=== PATIENT | female | born 1985 | race Caucasian/White ===

== ENCOUNTER 2016-10-13 09:02 | Emergency (ER) | payer BC ==
[2016-10-13 09:23] VITALS: BP 111/72
--- NOTE | 2016-10-13 09:32 | UC ---
Ear Complaint HPI - HPI Summary HPI Summary: right ear pain x 1 day, + cold sx x 7 days no fever, no chills, no cough - History of Current Complaint Chief Complaint: UCRespiratory Stated Complaint: RIGHT EAR PAIN Time Seen by Provider: 10/13/16 09:26 Hx Obtained From: Patient Hx Last Menstrual Period: End aug. ?: No Onset/Duration: Sudden Onset, Lasting Days - 1, Still Present Severity Initially: Severe Severity Currently: Severe Aggravating Factors: Cold Alleviating Factors: Nothing Associated Signs/Symptoms: Positive: URI Symptoms. Negative: Discharge, Hearing Loss, Foreign Body Sensation, Trauma to Ear, Swelling @ - Allergies/Home Medications Allergies/Adverse Reactions: Allergies Allergy/AdvReac Type Severity Reaction Status Date / Time No Known Allergies Allergy Verified 10/13/16 09:23 PMH/Surg Hx/FS Hx/Imm Hx Endocrine History Of: Denies: Diabetes Cardiovascular History Of: Reports: Hypertension Denies: Cardiac Disorders Respiratory History Of: Reports: Asthma - Surgical History Surgical History: Yes Surgery Procedure, Year, and Place: 1998 tubes in ears - Family History Known Family History: Positive: Cardiac Disease, Hypertension, Diabetes - Social History Alcohol Use: None Substance Use Type: None Smoking Status (MU): Never Smoked Tobacco Review of Systems Constitutional: Negative Skin: Negative Eyes: Negative ENT: Ear Ache, Nasal Discharge Respiratory: Negative Cardiovascular: Negative Gastrointestinal: Negative All Other Systems Reviewed And Are Negative: Yes Physical Exam Triage Information Reviewed: Yes Appearance: Well-Appearing, No Pain Distress, Well-Nourished Vital Signs: Initial Vital Signs Temp 98.7 F 10/13/16 09:15 Pulse 77 10/13/16 09:15 Resp 18 10/13/16 09:15 BP 111/72 10/13/16 09:15 Pulse Ox 98 10/13/16 09:15 Vital Signs Reviewed: Yes Eyes: Positive: Conjunctiva Clear ENT: Positive: Normal ENT inspection, Hearing grossly normal, Pharynx normal, Nasal congestion, TM bulging - right, TM dull - right, TM red - right. Negative : Pharyngeal erythema, Nasal drainage Neck: Positive: Supple, Nontender, No Lymphadenopathy Respiratory: Positive: Chest non-tender, Lungs clear, Normal breath sounds Cardiovascular: Positive: RRR, No Murmur, Pulses Normal Ear Complaint Course/Dx - Differential Dx/Diagnosis Provider Diagnoses: otitis media Discharge - Discharge Plan Condition: Stable Disposition: HOME Prescriptions: Amoxicillin (*) 875 mg PO BID #20 tab Patient Education Materials: Otitis Media (ED) Referrals: Julia Harding [Primary Care Provider] - 7 Days
== END 2016-10-13 09:39 | disposition home or self-care (01) ==
LOC: UCCORT 09:02
DX: H66.91 Otitis media, unspecified, right ear (principal); J00 Acute nasopharyngitis [common cold]
CPT/HCPCS: 99212; G0463

== ENCOUNTER 2017-02-10 12:04 | Emergency (ER) | payer BC ==
[2017-02-10 12:36] VITALS: BP 141/73
--- NOTE | 2017-02-10 13:00 | UC ---
Abdominal Pain Female HPI - HPI Summary HPI Summary: The patient comes in today for: 1. Abdominal pain: Onset: 2 days ago. Palliative/provocative: Nothing makes it better or worse. Quality: Aching, cramping. Region: Lower right and left abdominal pain. Severity: 1/10 Time: Comes and goes. Associated symptoms: Dysuria: None. Fever: None. Previous disease: None. Last BM: She will have a BM with the pain. She will have diarrhea. She has one 7-8 times. Diarrhea on Saturday was "not so much." She had BMs yesterday more than today. Nausea: None and no vomiting. Other's ill: None. A0 female with LMP of 517. No unusual vaginal discharge or bleeding. Usually, her crampy abdominal pain will come on and last a few minutes resulting in a bowel movement. Then she will be OK. * - History of Current Complaint Chief Complaint: UCAbdominalPain Stated Complaint: ABD PAIN Time Seen by Provider: 02/10/17 12:53 Hx Obtained From: Patient Hx Last Menstrual Period: 02/07/17 ?: No Allergies/Adverse Reactions: Allergies Allergy/AdvReac Type Severity Reaction Status Date / Time No Known Allergies Allergy Verified 02/10/17 12:36 Home Medications: Home Medications Omeprazole CAP* [Prilosec CAP* 20 MG] 1 tab PO DAILY 02/10/17 [History Confirmed 02/10/17] PMH/Surg Hx/FS Hx/Imm Hx Previously Healthy: No Endocrine History Of: Denies: Diabetes, Thyroid Disease, Hyperthyroidism, Hypothyroidism, Dyslipidemia Cardiovascular History Of: Reports: Hypertension - She was on propranolol for a while. She has been taken off recently. Denies: Cardiac Disorders, Pacemaker/ICD, Myocardial Infarction, Congestive Heart Failure, Atrial Fibrillation, Deep Vein Thrombosis, Bleeding Disorders Respiratory History Of: Reports: Asthma - "a few years ago." Denies: COPD, Bronchitis, Pneumonia, Pulmonary Embolism GI/ History Of: Reports: Gastroesophageal Reflux Denies: Ulcer, Gastrointestinal Bleed, Gall Bladder Disease, Kidney Stones, Diverticulitis, Renal Disease, Urosepsis Neurological History Of: Denies: TIA, CVA, Dementia, Seizures, Migraine Psychological History Of: Reports: Anxiety, Depression Denies: Bipolar Disorder, Schizophrenia, Post Traumatic Stress Disorder Cancer History Of: Denies: Lung Cancer, Colorectal Cancer, Breast Cancer, Prostate Cancer, Cervical Cancer Other History Of: Negative For: HIV, Hepatitis B, Hepatitis C, Anticoagulant Therapy - Surgical History Surgical History: Yes Surgery Procedure, Year, and Place: 1998 tubes in ears - Family History Known Family History: Positive: Cardiac Disease, Hypertension, Diabetes - Social History Occupation: Employed Full-time Alcohol Use: None Substance Use Type: None Smoking Status (MU): Never Smoked Tobacco Review of Systems Constitutional: Negative Skin: Negative Eyes: Negative ENT: Negative Respiratory: Negative Cardiovascular: Negative Gastrointestinal: Abdominal Pain, Diarrhea Genitourinary: Negative All Other Systems Reviewed And Are Negative: Yes Physical Exam Triage Information Reviewed: Yes Appearance: Well-Appearing, No Pain Distress, Ill-Appearing Vital Signs: Initial Vital Signs Temp 98.9 F 02/10/17 12:29 Pulse 88 02/10/17 12:29 Resp 16 02/10/17 12:29 BP 141/73 02/10/17 12:29 Pulse Ox 98 02/10/17 12:29 Vital Signs Reviewed: Yes Eyes: Positive: Conjunctiva Clear. Negative: Discharge ENT: Positive: Hearing grossly normal. Negative: Pharyngeal erythema, Nasal congestion, Nasal drainage, TM bulging, TM dull, TM red, Tonsillar swelling, Tonsillar exudate Dental: Negative: Gross Decay/Caries @, Dental Fracture @ Neck: Positive: Supple, Nontender, No Lymphadenopathy. Negative: Nuchal Rigidity Respiratory: Positive: Chest non-tender, Lungs clear, No respiratory distress, No accessory muscle use. Negative: Rhonchi, Wheezing Cardiovascular: Positive: RRR, No Murmur Abdomen Description: Positive: No Organomegaly, Soft. Negative: Nontender - She has tenderness with deep palpation of the right and left LQ. There is no rebound or percussion tenderness. No masses., Distended, Guarding Musculoskeletal: Positive: Strength Intact, ROM Intact, No Edema Neurological: Positive: Alert, Muscle Tone Normal Psychological: Positive: Normal Response To Family, Age Appropriate Behavior, Consolable Skin: Negative: rashes, breakdown Abd Pain Female Course/Dx - Course Course Of Treatment: Patient was told that I did not know for sure what was causing her abdominal pain. My recommendation was to go to the ER for further evaluation. HOwever, she did not want to do that. . She wanted to try a anti- spasmotic medication and if she did not get better, she was going to go to the ER. - Differential Dx/Diagnosis Differential Diagnosis: Constipation, Diverticulitis Provider Diagnoses: ABdominal pain, episodic,. Gastroenteritis Discharge - Discharge Plan Condition: Stable Disposition: HOME Patient Education Materials: Gastroenteritis (ED) Referrals: Julia Harding [Primary Care Provider] - 3 Days (Please see your primary care provider early next week to see how well you are doing. If you get worse, please be seen sooner.)
== END 2017-02-10 13:34 | disposition home or self-care (01) ==
LOC: UCCORT 12:04
DX: K52.9 Noninfective gastroenteritis and colitis, unspecified (principal); R10.31 Right lower quadrant pain; R10.32 Left lower quadrant pain; I10 Essential (primary) hypertension; J45.909 Unspecified asthma, uncomplicated; K21.9 Gastro-esophageal reflux disease without esophagitis; F41.8 Other specified anxiety disorders
CPT/HCPCS: 99212; G0463

== ENCOUNTER 2017-05-23 20:14 | Emergency (ER) | payer BC ==
[2017-05-23 20:26] VITALS: BP 124/77
--- NOTE | 2017-05-23 20:36 | UC ---
Skin Complaint HPI - HPI Summary HPI Summary: 31 year old female with rash. states she woke up this morning and noticed a rash on left forearm, then took a shower and noticed the rash had spread everywhere. Also says she has had a sore throat x 1 week and is unsure if it is related. SON WITH STREP 2 WEEKS AGO AND WITH STREP LAST WEEK AND HE IS STILL ON ANTIBIOTICS. [ End ] - History of Current Complaint Chief Complaint: UCSkin Time Seen by Provider: 05/23/17 20:28 Stated Complaint: RASH Hx Obtained From: Patient Hx Last Menstrual Period: 05/23/17 Timing: Constant Location: Diffuse Character: Pruritus Aggravating: Nothing Alleviating: Nothing - Allergy/Home Medications Allergies/Adverse Reactions: Allergies Allergy/AdvReac Type Severity Reaction Status Date / Time No Known Allergies Allergy Verified 05/23/17 20:25 Review of Systems Constitutional: Negative Skin: Rash Eyes: Negative ENT: Negative Respiratory: Negative Cardiovascular: Negative Gastrointestinal: Negative Genitourinary: Negative Motor: Negative Neurovascular: Negative Musculoskeletal: Negative Neurological: Negative Psychological: Negative All Other Systems Reviewed And Are Negative: Yes PMH/Surg Hx/FS Hx/Imm Hx Previously Healthy: Yes Other History Of: Negative For: HIV, Hepatitis B, Hepatitis C, Anticoagulant Therapy - Surgical History Surgical History: Yes Surgery Procedure, Year, and Place: 1998 tubes in ears - Family History Known Family History: Positive: Cardiac Disease, Hypertension, Diabetes - Social History Occupation: Employed Full-time Lives: With Family Alcohol Use: None Substance Use Type: None Smoking Status (MU): Never Smoked Tobacco Physical Exam Triage Information Reviewed: Yes Appearance: Well-Appearing, No Pain Distress, Well-Nourished Vital Signs: Initial Vital Signs Temp 98.8 F 05/23/17 20:21 Pulse 90 05/23/17 20:21 Resp 16 05/23/17 20:21 BP 124/77 05/23/17 20:21 Pulse Ox 100 05/23/17 20:21 Eye Exam: Normal ENT Exam: Normal Dental Exam: Normal Neck exam: Normal Neck: Positive: 1 Respiratory Exam: Normal Cardiovascular Exam: Normal Musculoskeletal Exam: Normal Neurological Exam: Normal Psychological Exam: Normal Skin Exam: Normal Skin: Positive: rashes - macular scattered erythematous rash on the bilateral forearms and chest Course/Dx - Course Course Of Treatment: likely strep rash from untreated strep exposure last few weeks and still with sore throat at this time. treat a thist time - Differential Diagnoses - Skin Complaint Differential Diagnoses: Cellulitis, Contact Dermatitis, Drug Rash, Poison [place], Scabies, Urticaria, Viral Exanthem - Diagnoses Provider Diagnoses: Strep rash/ scarlet fever Discharge - Discharge Plan Condition: Good Disposition: HOME Prescriptions: Amoxicillin PO (*) [Amoxicillin 500 MG CAP*] 500 mg PO Q12H #20 cap Patient Education Materials: Scarlet Fever (ED) Referrals: Leigh Andre MD [Primary Care Provider] - 4 Days
== END 2017-05-23 20:48 | disposition home or self-care (01) ==
LOC: UCCORT 20:14
DX: A38.9 Scarlet fever, uncomplicated (principal); J02.0 Streptococcal pharyngitis
CPT/HCPCS: 99212; G0463

== ENCOUNTER 2017-05-26 18:50 | Emergency (ER) | payer BC ==
[2017-05-26 19:23] VITALS: BP 153/100
--- NOTE | 2017-05-26 19:28 | UC ---
Upper Extremity HPI - HPI Summary HPI Summary: 31 YEAR OLD FEMALE PRESENTS WITH COMPLAINS OF SWOLLEN HAND AFTER TAKING - History of Current Complaint Chief Complaint: UCGeneralIllness Stated Complaint: JOINT SWELLING/PAIN Time Seen by Provider: 05/26/17 19:24 Hx Last Menstrual Period: 05/22/17 - Allergies/Home Medications Allergies/Adverse Reactions: Allergies Allergy/AdvReac Type Severity Reaction Status Date / Time No Known Allergies Allergy Verified 05/26/17 19:17 Home Medications: Home Medications Ibuprofen TAB* [Motrin TAB* 800 MG] 800 mg PO Q8H PRN 05/26/17 [History Confirmed 05/26/17] PMH/Surg Hx/FS Hx/Imm Hx Previously Healthy: Yes Other History Of: Negative For: HIV, Hepatitis B, Hepatitis C, Anticoagulant Therapy - Surgical History Surgical History: Yes Surgery Procedure, Year, and Place: 1998 tubes in ears - Family History Known Family History: Positive: Cardiac Disease, Hypertension, Diabetes - Social History Alcohol Use: None Substance Use Type: None Smoking Status (MU): Never Smoked Tobacco Review of Systems Constitutional: Negative Skin: Negative Eyes: Negative ENT: Negative Respiratory: Negative Cardiovascular: Negative Gastrointestinal: Negative Genitourinary: Negative Motor: Negative Neurovascular: Negative Musculoskeletal: Other: - SWOLLEN HANDS Neurological: Negative Psychological: Negative All Other Systems Reviewed And Are Negative: Yes Physical Exam Triage Information Reviewed: Yes Vital Signs: Initial Vital Signs Temp 37.6 C 05/26/17 19:18 Pulse 83 05/26/17 19:18 Resp 16 05/26/17 19:18 BP 153/100 05/26/17 19:18 Pulse Ox 100 05/26/17 19:18 Eye Exam: Normal ENT Exam: Normal Dental Exam: Normal Neck exam: Normal Neck: Positive: 1 Respiratory Exam: Normal Cardiovascular Exam: Normal Abdominal Exam: Normal Musculoskeletal: Positive: Other: - SWOLLEN HANDS Neurological Exam: Normal Psychological Exam: Normal Skin Exam: Normal Upper Extremity Course/Dx - Differential Dx/Diagnosis Provider Diagnoses: SWOLLEN HANDS Discharge - Discharge Plan Condition: Stable Disposition: HOME Patient Education Materials: Swollen Joint (ED) Referrals: Leigh Andre MD [Primary Care Provider] -
== END 2017-05-26 20:15 | disposition home or self-care (01) ==
LOC: UCCORT 18:50
DX: R22.33 Localized swelling, mass and lump, upper limb, bilateral (principal)
CPT/HCPCS: 87651; 99211; G0463

== ENCOUNTER 2017-07-10 15:37 | Emergency (ER) | payer BC ==
[2017-07-10 16:10] VITALS: BP 132/83
--- NOTE | 2017-07-10 16:51 | UC ---
Lower Extremity/Ankle HPI - HPI Summary HPI Summary: Fall as she stepped down from the last step. She heard a pop. there is no calf pain. - History of Current Complaint Chief Complaint: UCLowerExtremity Stated Complaint: PT FELL RIGHT FOOT PAIN AND SWELLING Time Seen by Provider: 07/10/17 16:40 Hx Obtained From: Patient Hx Last Menstrual Period: 06/25/17 Onset/Duration: Sudden Onset, Lasting Hours Severity Initially: Severe Severity Currently: Severe Aggravating Factor(s): Standing, Ambulation Alleviating Factor(s): Rest, Elevation Able to Bear Weight: No - Risk Factors Gout Risk Factors: Negative - Allergies/Home Medications Allergies/Adverse Reactions: Allergies Allergy/AdvReac Type Severity Reaction Status Date / Time No Known Allergies Allergy Verified 07/10/17 16:04 Home Medications: Home Medications Escitalopram (NF) [Lexapro 20 mg (NF)] 20 mg PO DAILY 07/10/17 [History Confirmed 07/10/17] Ibuprofen TAB* [Motrin TAB* 800 MG] 800 mg PO ONCE 07/10/17 [History Confirmed 07/10/17] busPIRone TAB* [Buspar TAB *] 15 mg PO DAILY 07/10/17 [History Confirmed ] PMH/Surg Hx/FS Hx/Imm Hx Previously Healthy: No - no prior injury to that ankle. Other History Of: Negative For: HIV, Hepatitis B, Hepatitis C, Anticoagulant Therapy - Surgical History Surgical History: Yes Surgery Procedure, Year, and Place: 1998 tubes in ears - Family History Known Family History: Positive: Cardiac Disease, Hypertension, Diabetes - Social History Alcohol Use: None Substance Use Type: None Smoking Status (MU): Former Smoker Length of Time of Smoking/Using Tobacco: 10/09 PPD for less than one year When Did the Patient Quit Smoking/Using Tobacco: 2012 - Immunization History Most Recent Influenza Vaccination: Not the 2016/2017 Season Review of Systems Musculoskeletal: Arthralgia All Other Systems Reviewed And Are Negative: Yes Physical Exam Triage Information Reviewed: Yes Appearance: Pain Distress - with palpation of the ankle., Obese Vital Signs: Initial Vital Signs Temp 98.5 F 07/10/17 16:02 Pulse 74 07/10/17 16:02 Resp 16 07/10/17 16:02 BP 132/83 07/10/17 16:02 Pulse Ox 99 07/10/17 16:02 Vital Signs Reviewed: Yes Eye Exam: Normal ENT: Positive: Normal ENT inspection Neck exam: Normal Neck: Positive: Supple, Nontender, No Lymphadenopathy Respiratory: Positive: No respiratory distress, No accessory muscle use Cardiovascular: Positive: RRR, Pulses Normal Musculoskeletal: Positive: Edema @ - dorsum of the foot., Other: - tenderness medial malleolus and 5th metatarsal. No tenderness of the proximal fibula. Neurological Exam: Normal Neurological: Positive: Alert, Muscle Tone Normal, Fatigued Psychological Exam: Normal Skin Exam: Normal Skin: Positive: rashes Lower Extremity Course/Dx - Differential Dx/Diagnosis Provider Diagnoses: right ankle pain. right ankle sprain. right foot sprain Discharge - Discharge Plan Condition: Good Disposition: HOME Patient Education Materials: Ankle Sprain (ED) Referrals: Leigh Andre MD [Primary Care Provider] - Aravind Felix MD [Medical Doctor] - If Needed
--- NOTE | 2017-07-10 17:47 | RAD ---
Indication: Traumatic medial RIGHT ankle pain. Comparison: No relevant prior exams available on the [facility] PACS for comparison. Technique: AP, mortise, and lateral views RIGHT ankle. AP, lateral, and oblique views of the RIGHT foot. Report: Soft tissue swelling about the ankle through mid foot without significant focality. Negative for articular malalignment or fracture at the ankle or foot. Normal variant bipartite sesamoid at the medial head of the flexor hallucis brevis. IMPRESSION: Soft tissue swelling without evidence for fracture or malalignment at the ankle or foot.
--- NOTE | 2017-07-10 17:47 | RAD ---
Indication: Traumatic medial RIGHT ankle pain. Comparison: No relevant prior exams available on the [facility] [place] for [place]. Technique: AP, mortise, and lateral views RIGHT ankle. AP, lateral, and oblique views of the RIGHT foot. Report: Soft tissue swelling about the ankle through mid foot without significant focality. Negative for articular malalignment or fracture at the ankle or foot. Normal variant bipartite sesamoid at the medial head of the flexor hallucis brevis. IMPRESSION: Soft tissue swelling without evidence for fracture or malalignment at the ankle or foot.
== END 2017-07-10 18:34 | disposition home or self-care (01) ==
LOC: UCCORT 15:37
DX: S93.401A Sprain of unspecified ligament of right ankle, initial encounter (principal); S93.601A Unspecified sprain of right foot, initial encounter; M25.571 Pain in right ankle and joints of right foot; Z87.891 Personal history of nicotine dependence; W10.9XXA Fall (on) (from) unspecified stairs and steps, initial encounter; Y92.9 Unspecified place or not applicable
CPT/HCPCS: 99213; G0463

== ENCOUNTER 2017-10-15 12:36 | Emergency (ER) | payer BC ==
[2017-10-15 14:30] VITALS: BP 134/86
--- NOTE | 2017-10-15 14:39 | UC ---
Throat Pain/Nasal Chidi HPI - HPI Summary HPI Summary: 31 y/o female presents to the urgent care c/o sore throat with mild dry cough since yesterday. Pain is 8/10 with swallowing, mild subjective fever at home. Pt denies SOB, OLIVER, chest pain abdominal pain N/V/D - History of Current Complaint Chief Complaint: UCRespiratory Stated Complaint: SORE THROAT Time Seen by Provider: 10/15/17 14:38 Hx Obtained From: Patient Hx Last Menstrual Period: 10/03/17 ?: No Onset/Duration: Gradual Onset, Lasting Days - 1 day, Still Present Severity: Moderate Pain Intensity: 8 Pain Scale Used: 0-10 Numeric Cough: Nonproductive Associated Signs & Symptoms: Positive: Fever - subjective at home - Epiglottits Risk Factors Epiglottis Risk Factors: Negative - Allergies/Home Medications Allergies/Adverse Reactions: Allergies Allergy/AdvReac Type Severity Reaction Status Date / Time No Known Allergies Allergy Verified 10/15/17 14:30 Home Medications: Home Medications Escitalopram (NF) [Lexapro 20 mg (NF)] 20 mg PO DAILY 10/15/17 [History Confirmed 10/15/17] PMH/Surg Hx/FS Hx/Imm Hx Previously Healthy: Yes Psychological History: Anxiety Other History Of: Negative For: HIV, Hepatitis B, Hepatitis C, Anticoagulant Therapy - Surgical History Surgical History: Yes Surgery Procedure, Year, and Place: 1998 tubes in ears - Family History Known Family History: Positive: Cardiac Disease, Hypertension, Diabetes - Social History Occupation: Employed Full-time Lives: With Family Alcohol Use: Rare Substance Use Type: None Smoking Status (MU): Former Smoker Length of Time of Smoking/Using Tobacco: 10/09 PPD for less than one year When Did the Patient Quit Smoking/Using Tobacco: 2012 - Immunization History Most Recent Influenza Vaccination: Not the Season Review of Systems Constitutional: Fever Skin: Negative Eyes: Negative ENT: Sore Throat Respiratory: Cough - dry Cardiovascular: Negative Gastrointestinal: Negative Genitourinary: Negative Motor: Negative Neurovascular: Negative Musculoskeletal: Negative Neurological: Negative Psychological: Negative Is Patient Immunocompromised?: No All Other Systems Reviewed And Are Negative: Yes Physical Exam Triage Information Reviewed: Yes Vital Signs: Initial Vital Signs Temp 99.6 F 10/15/17 14:26 Pulse 93 10/15/17 14:26 Resp 18 10/15/17 14:26 BP 134/86 10/15/17 14:26 Pulse Ox 99 10/15/17 14:26 - Additional Comments VITAL SIGNS: Reviewed. GENERAL: Patient is a well developed and nourished female who is sitting comfortable in the examining table. Patient is not in any acute respiratory distress. HEAD AND FACE: No signs of trauma. No ecchymosis, hematomas or skull depressions. No sinus tenderness. EYES: PERRLA, EOMI x 2, No injected conjunctiva, no nystagmus. No photophobia. EARS: Hearing grossly intact. Ear canals and tympanic membranes are within normal limits. MOUTH: Positive pharynx with erythema, exudates, palatal petechiae. B/L tonsillar enlargement with exudate. Uvula in midline. NECK: Supple, trachea is midline, Positive anterior cervical lymphadenopathy, no JVD, no carotid bruit, no c-spine tenderness, neck with full ROM. No meningeal signs, no Kernig's or brudzinskis signs. CHEST: Symmetric, no tenderness at palpation LUNGS: Clear to auscultation bilaterally. No wheezing or crackles. CVS: Regular rate and rhythm, S1 and S2 present, no murmurs or gallops appreciated. ABDOMEN: Soft, non-tender. No signs of distention. No rebound no guarding, and no masses palpated. Bowel sounds are normal. EXTREMITIES: FROM in all major joints, no edema, no cyanosis or clubbing. NEURO: Alert and oriented x 3. No acute neurological deficits. Speech is normal and follows commands. SKIN: Dry and warm Throat Pain/Nasal Course/Dx - Course Course Of Treatment: 31 y/o female presents to the urgent care c/o sore throat with mild dry cough since yesterday. Pain is 8/10 with swallowing, mild subjective fever at home. Pt denies SOB, OLIVER, chest pain abdominal pain N/V/D. HX obtained. Pt with pharyngitis on examination. Rapid strep ordered: result: positive. Strep pharyngitis. Rx Amoxicillin PO and Ibuprofen PO for pain and swelling. PT Advised on hand washing to avoid spreading. Also advised to rest, eat well and avoid strenuous exercise. If symptoms do not improve or worsen advised to return to the urgent care or f/u with her PCP for further evaluation and treatment. PT understood and agreed - Differential Dx/Diagnosis Differential Diagnosis/HQI/PQRI: Influenza, Laryngitis, Mononucleosis, Pharyngitis, Sinusitis, Tonsillitis, URI Provider Diagnoses: 1- Strep Pharyngitis Discharge - Discharge Plan Condition: Stable Disposition: HOME Prescriptions: Amoxicillin PO (*) [Amoxicillin 875 MG (*)] 875 mg PO BID #20 tab Ibuprofen TAB* [Motrin TAB* 800 MG] 800 mg PO Q6H PRN #20 tab PRN Reason: Pain Patient Education Materials: Strep Throat (ED) Referrals: Leigh Andre MD [Primary Care Provider] - 3 Days Additional Instructions: 1- Please take the full course of the antibiotic to avoid resistance. 2-Please take ibuprofen PO q6-8hrs prn as instructed after meals to alleviate pain and swelling. Increase fluid intake, eat well, rest and avoid strenuous exercise 3-If symptoms do not improve or worsen please return to the urgent care or f/u with your PCP for further evaluation and treatment.
== END 2017-10-15 14:55 | disposition home or self-care (01) ==
LOC: UCCORT 12:36
DX: J02.0 Streptococcal pharyngitis (principal); F41.9 Anxiety disorder, unspecified; Z87.891 Personal history of nicotine dependence
CPT/HCPCS: 87651; 99212; G0463

== ENCOUNTER 2017-11-15 14:45 | Emergency (ER) | payer BC ==
[2017-11-15 17:30] VITALS: BP 145/93
--- NOTE | 2017-11-15 17:48 | UC ---
Knee Pain HPI - HPI Summary HPI Summary: 32 yo female with onset of medial knee pain 11/10 walking down stairs denies twisting or jamming injury painful to bend knee amrita at jenn[facility] no swelling - History of Current Complaint Chief Complaint: UCLowerExtremity Stated Complaint: RT KNEE INJURY Time Seen by Provider: 11/15/17 17:36 Hx Obtained From: Patient Hx Last Menstrual Period: 11/05/17 Onset/Duration: Sudden Onset, Lasting Days Severity Initially: Moderate Severity Currently: Moderate Pain Intensity: 8 - max Pain Scale Used: 0-10 Numeric Character: Sharp Aggravating Factor(s): Movement Alleviating Factor(s): Rest Able to Bear Weight: Yes - Allergies/Home Medications Allergies/Adverse Reactions: Allergies Allergy/AdvReac Type Severity Reaction Status Date / Time No Known Allergies Allergy Verified 11/15/17 17:30 PMH/Surg Hx/FS Hx/Imm Hx Previously Healthy: Yes Other History Of: Negative For: HIV, Hepatitis B, Hepatitis C, Anticoagulant Therapy - Surgical History Surgical History: Yes Surgery Procedure, Year, and Place: 1998 tubes in ears - Family History Known Family History: Positive: Cardiac Disease, Hypertension, Diabetes, Other - DJD - Social History Alcohol Use: None Substance Use Type: None Smoking Status (MU): Former Smoker Length of Time of Smoking/Using Tobacco: 10/09 PPD for less than one year When Did the Patient Quit Smoking/Using Tobacco: 2012 - Immunization History Most Recent Influenza Vaccination: Not the Season Review of Systems Constitutional: Negative Skin: Negative Eyes: Negative ENT: Negative Respiratory: Negative Cardiovascular: Negative Gastrointestinal: Negative Genitourinary: Negative Motor: Negative Neurovascular: Negative Musculoskeletal: Arthralgia Neurological: Negative Psychological: Negative Is Patient Immunocompromised?: No All Other Systems Reviewed And Are Negative: Yes Physical Exam Triage Information Reviewed: Yes Appearance: Well-Appearing, No Pain Distress, Well-Nourished Vital Signs: Initial Vital Signs Temp 98.4 F 11/15/17 17:26 Pulse 73 11/15/17 17:26 Resp 17 11/15/17 17:26 BP 145/93 11/15/17 17:26 Pulse Ox 100 11/15/17 17:26 Vital Signs Reviewed: Yes Eyes: Positive: Conjunctiva Clear ENT: Negative: Hearing grossly normal, Nasal congestion, Nasal drainage, Trismus , Muffled voice, Hoarse voice Neck: Positive: Supple, Nontender, No Lymphadenopathy Respiratory: Positive: Lungs clear, Normal breath sounds, No respiratory distress Cardiovascular: Positive: RRR, No Murmur Musculoskeletal: Positive: ROM Limited @ - right knee-able to fully extend...limited flexion Neurological: Positive: Alert Psychological Exam: Normal Skin Exam: Normal Diagnostics - Radiology No standard instances Xray Interpretation: No Acute Changes Radiology Interpretation Completed By: Radiologist Knee Pain Course/Dx - Differential Dx/Diagnosis Provider Diagnoses: RIGHT KNEE INJURY. ? SPRAIN Discharge - Discharge Plan Condition: Stable Disposition: HOME Prescriptions: Naproxen Sodium [Naproxen Sodium 500 MG TAB] 500 mg PO BID PRN #30 tab PRN Reason: Pain Patient Education Materials: Knee Pain (ED), R.I.C.E. Treatment (ED) Referrals: Aravind Felix MD [Medical Doctor] - 4 Days Additional Instructions: REST ELEVATE ICE
--- NOTE | 2017-11-15 18:42 | RAD ---
INDICATION: Right knee pain COMPARISON: None TECHNIQUE: AP, lateral, tunnel, and sunrise views were obtained. FINDINGS: The bony structures, joint spaces, and soft tissues are normal for age. IMPRESSION: NEGATIVE EXAMINATION.
== END 2017-11-15 19:03 | disposition home or self-care (01) ==
LOC: UCCORT 14:45
DX: S89.91XA Unspecified injury of right lower leg, initial encounter (principal); X58.XXXA Exposure to other specified factors, initial encounter; Y93.01 Activity, walking, marching and hiking; Y92.9 Unspecified place or not applicable; Z87.891 Personal history of nicotine dependence
CPT/HCPCS: 99212; G0463